=== PATIENT | female | born 1980 | race Two or more races ===

== ENCOUNTER 2022-01-03 15:40 | Emergency (ER) | payer OTHER ==
[2022-01-03 15:48] VITALS: BP 166/100; PULSE 80; TEMP 97.8; BMI 35.5
[2022-01-03 17:06] LABS: HCG,QUALITATIVE URINE Positive
[2022-01-03 17:07] LABS: HEMATOCRIT 40.2 % (32.4-45.2); HEMOGLOBIN 13.3 GM/dL (10.7-15.3); MCH 25.9 pg (25.7-33.7); MCHC 33.1 g/dl (32.0-36.0); MEAN CELL VOLUME 78.2 fl (80-96); MEAN PLT VOLUME 9.4 fl (7.5-11.1); PLATELET COUNT 206 10^3/uL (134-434); RBC 5.14 M/mm3 (3.60-5.2); WHITE BLOOD COUNT 8.6 K/mm3 (4.0-10.0)
[2022-01-03 17:09] LABS: EPI CELLS 17 /uL (0-25.1); HYALINE CASTS 0 /uL (0-3.1); PH,URINE 5.5 (5.0-8.0); URINE APPEARANCE CLEAR; URINE BACTERIA 240 /uL (0-1359); URINE BILIRUBIN NEGATIVE (NEGATIVE); URINE COLOR YELLOW; URINE GLUCOSE (UA) NEGATIVE (NEGATIVE); URINE KETONE NEGATIVE (NEGATIVE); URINE LEUK ESTERASE NEGATIVE (NEGATIVE); URINE NITRITE NEGATIVE (NEGATIVE); URINE PROTEIN NEGATIVE (NEGATIVE); URINE RBC 4 /uL (0-23.9); URINE UROBILINOGEN 0.2 mg/dL (0.2-1.0); URINE WBC 12 /uL (0-25.8)
[2022-01-03 17:26] LABS: ALBUMIN 3.8 g/dl (3.4-5.0); BLOOD UREA NITROGEN 10.6 mg/dL (7-18); CALCIUM 9.1 mg/dL (8.5-10.1)
[2022-01-03 17:29] LABS: CREATININE 0.8 mg/dL (0.55-1.3)
[2022-01-03 17:31] LABS: BILIRUBIN,TOTAL 0.2 mg/dL (0.2-1); TOT PROT 7.3 g/dl (6.4-8.2)
== END 2022-01-03 20:34 | disposition left against medical advice (07) ==
LOC: JER 15:40
DX: N93.9 Abnormal uterine and vaginal bleeding, unspecified (principal)
CPT/HCPCS: 36415; 76817-TC; 80053; 81003; 84702; 84703; 85027; 87086; 99284-25

== ENCOUNTER 2022-07-31 11:15 | Inpatient (IN) | payer OTHER ==
[2022-07-31] MEDS: ELECTROLYTE-148 SOLN 1,000 ML IV SCH ×2 (12:00→13:00)
[2022-07-31] MEDS ORDERED: CITRIC ACID/SODIUM CITRATE 30 ML UNIT-DOSE CUP PO ONE (12:35)
[2022-07-31 12:43] VITALS: BMI 38.4
[2022-07-31] MEDS ORDERED: morphine SULFATE/PF 1 MG/2 ML (2cc Syringe - QUVA) ONE (13:04)
[2022-07-31] MEDS ORDERED: ONDANSETRON 4 MG/2 ML VIAL ONE (13:04)
[2022-07-31] MEDS ORDERED: DEXAMETHASONE SOD PHOSPHATE 4 MG/1 ML VIAL ONE (13:04)
[2022-07-31] MEDS ORDERED: ceFAZolin SODIUM 1 GM VIAL ONE (13:04)
[2022-07-31] MEDS ORDERED: morphine SULFATE/PF 1 MG/2 ML (2cc Syringe - QUVA) SPIN ONE (14:04)
[2022-07-31] MEDS ORDERED: BENZOCAINE 28 GM HEMORRHOIDAL OINTMENT TP PRN (15:00)
[2022-07-31] MEDS ORDERED: IBUPROFEN 600 MG TABLET (FP) PO PRN (15:00)
[2022-07-31] MEDS ORDERED: METHYLERGONOVINE MALEATE 0.2 MG/1 ML AMP IM PRN (15:00)
[2022-07-31] MEDS ORDERED: WITCH HAZEL 50% (TUCKS) 40 PAD/JAR PAD TP PRN (15:00)
[2022-07-31] MEDS ORDERED: BENZOCAINE 20% 57 GM BOTTLE TP PRN (15:00)
[2022-07-31] MEDS ORDERED: ONDANSETRON 4 MG/2 ML VIAL IVPUSH PRN (15:14)
[2022-07-31] MEDS: OXYTOCIN 20 UNITS in 0.9% NS 20 UNIT/1,000 ML INFUS.BAG IV SCH (15:15)
[2022-07-31] MEDS ORDERED: OXYTOCIN 20 UNITS in 0.9% NS 20 UNIT/1,000 ML INFUS.BAG IV ONE (15:16)
[2022-07-31] MEDS: IBUPROFEN 800 MG/8 ML IJ IVPB PRN (16:30)
[2022-07-31] MEDS ORDERED: IBUPROFEN 800 MG/8 ML IJ IVPB ONE (16:41)
[2022-07-31] MEDS: FERROUS SO4 325 MG TABLET (FP) PO SCH (21:27)
[2022-07-31] MEDS: SIMETHICONE 80 MG TAB.CHEW (FP) PO PRN (21:27)
[2022-07-31] MEDS: ACETAMINOPHEN 325 MG TABLET (FP) PO PRN (21:27)
[2022-08-01] MEDS: IBUPROFEN 800 MG/8 ML IJ IVPB PRN (00:56)
[2022-08-01] MEDS: oxyCODONE HCL 5 MG TABLET PO PRN ×5 (03:05→23:22)
[2022-08-01] MEDS: OXYTOCIN 20 UNITS in 0.9% NS 20 UNIT/1,000 ML INFUS.BAG IV SCH (06:44)
[2022-08-01 09:44] LABS: BASO % 0.2 % (0-2.0); EOS % 0.1 % (0-4.5); HEMATOCRIT 38.2 % (32.4-45.2); HEMOGLOBIN 12.4 GM/dL (10.7-15.3); LYMPH % 16.3 % (8-40); MCH 25.5 pg (25.7-33.7); MCHC 32.6 g/dl (32.0-36.0); MEAN CELL VOLUME 78.2 fl (80-96); MEAN PLT VOLUME 10.8 fl (7.5-11.1); MONO % 6.1 % (3.8-10.2); NEUT % 77.3 % (42.8-82.8); PLATELET COUNT 146 10^3/uL (134-434); RBC 4.88 M/mm3 (3.60-5.2); RDW 15.8 % (11.6-15.6); WHITE BLOOD COUNT 14.9 K/mm3 (4.0-10.0)
[2022-08-01] MEDS: FERROUS SO4 325 MG TABLET (FP) PO SCH ×2 (10:38→22:44)
[2022-08-01] MEDS: NIFEdipine E.R. 30 MG TABLET PO SCH (10:38)
[2022-08-01] MEDS: PRENATAL VITAMINS W/ FOLIC ACID TABLET (FP) PO SCH (10:38)
[2022-08-01] MEDS ORDERED: BISACODYL 10 MG SUPP.RECT PR ONE (10:45)
[2022-08-01] MEDS: SIMETHICONE 80 MG TAB.CHEW (FP) PO PRN ×2 (14:47→19:18)
[2022-08-01] MEDS ORDERED: BISACODYL 10 MG SUPP.RECT RC PRN (15:00)
[2022-08-01] MEDS: ACETAMINOPHEN 325 MG TABLET (FP) PO PRN (20:33)
[2022-08-01] MEDS: SENNOSIDES/DOCUSATE COMBO (SENNA PLUS) TABLET (UD) PO PRN (23:22)
[2022-08-02] MEDS: SIMETHICONE 80 MG TAB.CHEW (FP) PO PRN ×5 (03:35→20:18)
[2022-08-02] MEDS: oxyCODONE HCL 5 MG TABLET PO PRN ×5 (03:35→20:18)
[2022-08-02] MEDS: ACETAMINOPHEN 325 MG TABLET (FP) PO PRN (06:24)
[2022-08-02] MEDS: NIFEdipine E.R. 30 MG TABLET PO SCH (11:09)
[2022-08-02] MEDS: FERROUS SO4 325 MG TABLET (FP) PO SCH ×2 (11:09→21:02)
[2022-08-02] MEDS: PRENATAL VITAMINS W/ FOLIC ACID TABLET (FP) PO SCH (11:09)
[2022-08-02] MEDS: SENNOSIDES/DOCUSATE COMBO (SENNA PLUS) TABLET (UD) PO PRN (21:03)
[2022-08-03] MEDS: oxyCODONE HCL 5 MG TABLET PO PRN ×2 (00:02→04:48)
[2022-08-03] MEDS: SIMETHICONE 80 MG TAB.CHEW (FP) PO PRN ×3 (00:02→09:36)
[2022-08-03 05:58] VITALS: RESP 18
[2022-08-03 09:16] LABS: BASO % 0.1 % (0-2.0); EOS % 0.8 % (0-4.5); HEMATOCRIT 36.6 % (32.4-45.2); HEMOGLOBIN 12.1 GM/dL (10.7-15.3); LYMPH % 13.3 % (8-40); MCH 25.5 pg (25.7-33.7); MEAN CELL VOLUME 77.4 fl (80-96); MEAN PLT VOLUME 11.2 fl (7.5-11.1); MONO % 5.8 % (3.8-10.2); PLATELET COUNT 162 10^3/uL (134-434); RBC 4.73 M/mm3 (3.60-5.2); RDW 16.1 % (11.6-15.6); WHITE BLOOD COUNT 11.3 K/mm3 (4.0-10.0)
[2022-08-03] MEDS: FERROUS SO4 325 MG TABLET (FP) PO SCH (09:36)
[2022-08-03] MEDS: PRENATAL VITAMINS W/ FOLIC ACID TABLET (FP) PO SCH (09:36)
[2022-08-03] MEDS: NIFEdipine E.R. 30 MG TABLET PO SCH (09:37)
[2022-08-03 11:13] VITALS: BP 117/79; PULSE 80; TEMP 98.2
== END 2022-08-03 12:40 | disposition home or self-care (01) | DRG 540 ==
LOC: JLDR 11:15 → J3W 16:48
PROVIDERS: ADMIT Obstetrics & Gynecology; ATTEND Obstetrics & Gynecology
PROC: 10D00Z1 Extraction of Products of Conception, Low, Open Approach (ICD-10-PCS; principal; 2022-07-31)
PROC: 0UL70ZZ Occlusion of Bilateral Fallopian Tubes, Open Approach (ICD-10-PCS; 2022-07-31)
DX: O34.211 Maternal care for low transverse scar from previous cesarean delivery (principal); O10.92 Unspecified pre-existing hypertension complicating childbirth; O24.12 Pre-existing type 2 diabetes mellitus, in childbirth; O99.214 Obesity complicating childbirth; E66.9 Obesity, unspecified; Z30.2 Encounter for sterilization; Z37.0 Single live birth; Z3A.38 38 weeks gestation of pregnancy
CPT/HCPCS: 36415; 82962; 85025; 88302-TC; 88307-TC